=== PATIENT | male | born 1970 | race Hispanic/Latino ===

== ENCOUNTER → 2023-11-10 | Outpatient (CLI) | payer OTHER ==
[~2023-11-10] MED LIST: IBUP-2482 PO; LEVO750T39 PO; TYL3 PO
== END ==
LOC: OIH 15:42
PROVIDERS: ATTEND Family Medicine
DX: Z12.31 Encounter for screening mammogram for malignant neoplasm of breast (principal)
CPT/HCPCS: 75571